=== PATIENT | female | born 1985 | race Caucasian/White ===

== ENCOUNTER 2021-02-06 15:26 | Emergency (ER) | payer OTHER ==
[~2021-02-06] VITALS: Ht 160 cm; Wt 124.7 kg
--- NOTE | 2021-02-06 15:31 | NUR ---
Patient to ER bed 02 to gown for evaluation. Side rails up.
[2021-02-06 15:34] VITALS: BP_SYST 144
--- NOTE | 2021-02-06 15:35 | NUR ---
ER at bedside examining patient.
--- NOTE | 2021-02-06 15:40 | NUR ---
pt. bib ACLS with c/o rapid heart beat, felt like was blacking out, and 13 5/7 weeks per pt. Was at her kids school and staff called 911.
[2021-02-06 16:01] LABS: BASOPHILS % (AUTO) 0.3 % (0.0-2.0); EOSINOPHILS % (AUTO) 0.5 % (0.0-4.0); HEMOGLOBIN 12.8 g/dL (12.0-16.0); LYMPHOCYTES # (AUTO) 1.6 K/uL (1.0-5.5); LYMPHOCYTES % (AUTO) 17.4 % (20.5-51.5); MEAN CORPUSCULAR HEMOGLOBIN 31 pg (27-31); MEAN CORPUSCULAR HGB CONC 34 % (32-36); MEAN CORPUSCULAR VOLUME 92 fL (79.0-98.0); MONOCYTES # (AUTO) 0.5 K/uL (0.0-1.0); MONOCYTES % (AUTO) 5.5 % (1.7-9.3); NEUTROPHILS # (AUTO) 7.1 K/uL (1.8-7.7); NEUTROPHILS % (AUTO) 76.3 % (40.0-70.0); PLATELET COUNT (AUTO) 356 K/uL (130-430); RED BLOOD CELL COUNT(AUTO) 4.13 MIL/uL (4.2-6.2); RED CELL DISTRIBUTION WIDTH 13.8 % (9.0-15.0); WHITE BLOOD COUNT (AUTO) 9.3 K/uL (4.8-10.8)
[2021-02-06 16:19] LABS: CALCIUM 9.2 mg/dL (8.4-11.0); CREATININE 0.67 mg/dL (0.55-1.30); POTASSIUM 3.6 mmol/L (3.5-5.1)
[2021-02-06 16:22] LABS: INR 0.9 (0.8-1.2); PROTHROMBIN TIME 9.3 SECS (9.5-12.5)
[2021-02-06 16:26] LABS: ALBUMIN 3.1 g/dL (3.4-4.8)
[2021-02-06 16:45] LABS: TOTAL BILIRUBIN 0.1 mg/dL (0.0-1.0)
[2021-02-06 17:42] VITALS: BP_SYST 119
--- NOTE | 2021-02-06 17:44 | NUR ---
Patient given written and verbal discharge instructions and verbalizes understanding. Dr. zurita discussed with patient the results and treatment provided. Patient in stable condition. ID arm band removed. IV catheter removed intact and dressing applied, no active bleeding. Pain Scale 0. Opportunity for questions provided and answered.
== END 2021-02-06 17:42 | disposition home or self-care (01) ==
LOC: SED 15:26
DX: O26.891 Other specified pregnancy related conditions, first trimester (principal); R55 Syncope and collapse; Z88.0 Allergy status to penicillin; Z3A.13 13 weeks gestation of pregnancy
CPT/HCPCS: 36415; 71045; 80053; 81025; 83605; 84484; 85025; 85610-TC; 85730-TC; 93005; 99285